=== PATIENT | female | born 1950 | race Caucasian/White ===

== ENCOUNTER → 2016-09-25 | Outpatient (CLI) | payer MEDICARE, MEDICAID ==
[~2016-09-25] MED LIST: ALBUTEROL2.5 MG/NEB IN; DULERA1 ARO IH; GABAPENTIN300 MG PO; HYDROCHLOROTH12.5 M1 PO; LORATADINE 10MG10 M1 PO; LORTAB 5/500 501 TAB PO; LOVASTATIN20 MG PO; NAPROSYN 500MG500 MG PO; NEXIUM40 MG PO; NORCO 325 MG-51 TAB PO; PHENERGAN 25MG.25 M1 PO; PRINIVIL10 M1 PO; PROAIR HFA0.09 MG/AC IH; RANITIDINE HCL150 MG PO; SERTRALINE 100100 MG PO; Tramadol HCl50 MG PO; VERAPAMIL SR 2240 MG PO; VICODIN 5/500 T1 TAB PO; VOLTAREN50 MG PO; XANAX 0.5MG TA0.5 MG PO; XOPENOX 0.0.63 MG/3 IN; ZITHROMAX Z PA250 MG PO; ZOLOFT100 MG PO
--- NOTE | 2016-09-26 09:02 | RADIOLOGY REPORT PS360 ---
EXAM: CT LUNG LOW DOSE WO CONTRAST COMPARISON: 10/06/2015 HISTORY: 66-year-old female asymptomatic with greater than 35 pack-year smoking history ORDERING PHYSICIAN: DANITA DOWNS MD PATIENT AGE: 66 years TECHNIQUE: The exam was performed on a GE Light Speed [address] scanner using 2.96 mGy CTDI. A low dose helical CT CHEST was performed on a multi-detector scanner The LDCT was performed in a facility that meets the criteria for the screening program. Data regarding this exam was submitted to [employer] which is an approved registry. The order for this exam indicates that it came as a result of a lung cancer screening counseling shard decision-making visit that included all the elements required of such a visit including smoking cessation. The radiologist interpreting this exam meets the [facility] criteria for the LDCT lung cancer screening program. The exam is reported using the Lung-RADS classification scale and reported to the [employer] registry. NOTE: This study was performed for the specific purposes of lung cancer screening and is not an alternative to diagnostic chest CT. RADIATION DOSE: CTDI vol(CT dose Index-volume) = 2.96mG DLP (Dose Length Product) = 120.39 mGcm FINDINGS: There is biapical pleural thickening. A 5 mm nodule present in the left apex unchanged 3 mm right apical nodule unchanged There are centrilobular emphysematous changes with hyperinflation, attenuation of the peripheral pulmonary vessels, and bronchial thickening consistent with obstructive chronic bronchitis. Mild fibrotic changes are present in the lung bases. No new nodules. Scattered small nodes are present in the axilla. No mediastinal mass. Some minimal thickening of the right major fissure. IMPRESSION: 1. Lung RADS Category: 2, benign 2. Other findings: Emphysema, obstructive chronic bronchitis RECOMMENDATIONS: 12-month LDCT screening exam
== END ==
LOC: RAD 12:51
DX: Z87.891 Personal history of nicotine dependence (principal); J44.9 Chronic obstructive pulmonary disease, unspecified; Z12.2 Encounter for screening for malignant neoplasm of respiratory organs
CPT/HCPCS: G0297

== ENCOUNTER 2016-11-21 10:41 | Day surgery (SDC) | payer MEDICARE, MEDICAID ==
[2016-11-21 13:54] VITALS: BP 148/80
== END 2016-11-21 13:30 | disposition home or self-care (01) ==
LOC: SDC 10:41
PROC: 08RJ3JZ Replacement of Right Lens with Synthetic Substitute, Percutaneous Approach (ICD-10-PCS; principal; 2016-11-21)
DX: H26.9 Unspecified cataract (principal)

== ENCOUNTER 2016-12-05 06:57 | Day surgery (SDC) | payer MEDICARE, MEDICAID ==
[2016-12-05 09:34] VITALS: BP 134/60
== END 2016-12-05 08:48 | disposition home or self-care (01) ==
LOC: SDC 06:57
PROVIDERS: Ophthalmology
PROC: 08RK3JZ Replacement of Left Lens with Synthetic Substitute, Percutaneous Approach (ICD-10-PCS; principal; 2016-12-05 08:00)
DX: H25.813 Combined forms of age-related cataract, bilateral (principal); H53.8 Other visual disturbances
CPT/HCPCS: V2632

== ENCOUNTER → 2016-12-26 | Outpatient (CLI) | payer MEDICARE, MEDICAID ==
[2016-12-26 11:05] VITALS: BP 168/79
[2016-12-26 11:15] VITALS: BP 183/81
== END ==
LOC: RT 09:58
DX: J43.9 Emphysema, unspecified (principal)